=== PATIENT | male | born 1950 | race Caucasian/White ===

== ENCOUNTER 2023-06-12 10:00 | Outpatient (RCR) | payer MEDICARE, OTHER, SELFPAY ==
--- NOTE | 2023-04-25 18:31 | HP.PTEVAL ---
Patient's Visit Information SADIA TODD Jr. is a 72 year old M referred to Physical Therapy by SHEYLA LESTER with a diagnosis of imbalance/gait difficulty. Date of Evaluation: 04/25/23 Physical Therapist: OVIDIO DelgadoT, OCS, CSCS - Visit Plan Frequency: 2x /Week Duration: 4-6 Weeks Plan: 2x/week for 4=6 weeks for. 1/ PF strength and forward weight shift functionally. 2. teach gym based LE adn core and overall strength program to capo goldstein I. - Subjective Balance sucks. I can feel it getting worse over the last year. Brain and memory is poor. Wants to workout. [place] go to [place]. Had a helper and stayed level and did not get worse. Upper thighs are with strength, hard time walking as legs give out and get tired. Had had few falls LOB is the cause. It has been a while. Doesn't remember well the last time he fell. Then says last fall was going into house in last three weeks. No injury. Has neuroapthy from DM, but doesnt have that. Might get a little dizzy upon standing for short time. patient has hard time remembering symptoms. No pain. No cane or walker, sometimes uses walking stick if wifes around. Lives with , one story house in [facility], has disease and getting near lungs giving out. Came to [place] to . Live in two story [place] in [place] but he avoids steps. Some steps with railing to enter house and that is going OK. No regular exercise right now, been here three weeks. - Objective Walks without weight shift with short steps adn unable to push off. Forward weight shift is difficult, Hits gorund hard but I in gait. Transfers are I without UE. Steps require rail for safety adn tend to pull his way up step avoiding FW weight shift. Comes down with poor eccentric control and landing on heel and flat foot rather than forefoot. 754 B PF strength to seated testing. LE AROM WFL, tightness present in gastroc and hamstring. Sensation diminished to gross light touch in B LE feet. Hips weak in stabilizers at 3 and flexion 3+ and ext adn abd 3. knees 4- B quads and hammys. Strefngth in ankles 3+ inv ev B, 4 DF, 3 PF and unable to heel raise B or unilaterally. reflexes 1/3 patella and 0/3 achilles. no tremors. Coordination to reciprocal toe tap is fair and heel tap is poor. heel to peter test is Ok. - Balance/Special Test Scores Functional Gait Assessment Score: 23 % Disability: 23.3400 Lower Extremity Functional Score: 19 - Goals Goal 1:: 85 strength B pf and I in HEP to strengthen Goal 2:: Patient be I in appropriate gym based silver triston LE and core adn balance ex program Goal Time Frame: 4-6 Weeks Goal 3:: pt feel 50% better overall and I in management Goal Time Frame: 4-6 Weeks Goal 4:: FGa Goal Time Frame: 4-6 Weeks Goal 5:: 39 LEFS Goal Time Frame: 4-6 Weeks - Rehabilitation Potential Physical Therapy Diagnosis: imbalance due to neuroapthya dn PF weakness. Rehabilitation Potential: Questionable - Anticipated Interventions Patient/Client Instruction: Educate patient on: Condition, Plan of Care For the Purpose of:: To improve muscle performance and motor function, To increase tolerance to activity/condition/position, To improve gait and locomotor functions Therapeutic Exercise to Include: Strength training, Flexibilty training For the Purpose of:: To increase ROM, To improve nutrient delivery to tissue, To improve muscle performance and motor function, To increase tolerance to activity/condition/position, To improve gait and locomotor functions, To improve safety Thank you for the opportunity to evaluate your patient. For Medicare and Medicare HMO plans, please review the plan of care and approve it. It will need to be FAXED BACK to us at [phone] for Medicare purposes. For Medicare only, by signing this I certify the plan of care. Please let me know if there are questions or concerns regarding this plan of care. Physician Signature: Date:
--- NOTE | 2023-08-12 07:22 | HP.PT.NRP ---
Patient Information Patient Information: SADIA TODD Jr. was seen in my office for initial evaluation on 04/25/23. The following Plan of Care was established for this patient: POC Established Initial Frequency: 2x /Week Initial Duration: 4-6 Weeks Anticipated Interventions Patient/Client Instruction: Educate patient on: Condition and Plan of Care For the Purpose of:: To improve muscle performance and motor function, To increase tolerance to activity/condition/position and To improve gait and locomotor functions Therapeutic Exercise to Include: Strength training and Flexibilty training For the Purpose of:: To increase ROM, To improve nutrient delivery to tissue, To improve muscle performance and motor function, To increase tolerance to activity/condition/position, To improve gait and locomotor functions and To improve safety Last Seen Last Seen: This patient was last seen in our office 06/12/23. Pertinent comments regarding their Physical therapy will appear below: Pt seen 8 visits of POC but did not schedule or attend any further visits. at this point, it has been almost two months and I will discontinue due to nonattendance. At this point I will be discontinuing this patient from physical therapy. I would be happy to see this patient again in the future if found appropriate by the physician. Thank you! Shaheed Turner, DPT, OCS, CSCS Balance/Gait/Functional tests Balance/Special Test Scores Functional Gait Assessment Score: 23 % Disability: 23.3400 Lower Extremity Functional Score: 19
== END 2023-06-12 19:00 | disposition home or self-care (01) ==
LOC: PT 10:00
PROVIDERS: PCP Family Medicine
DX: G60.9 Hereditary and idiopathic neuropathy, unspecified (principal); R26.81 Unsteadiness on feet
CPT/HCPCS: 97110; 97112; 97162

== ENCOUNTER → 2024-08-20 | Outpatient (CLI) | payer MEDICARE, OTHER, SELFPAY ==
[2024-08-24 17:07] LABS: Acetylcholine Receptor Binding < 0.03 nmol/L (0.00-0.24)
== END | disposition home or self-care (01) ==
PROVIDERS: PCP Family Medicine; Referring Provider Ophthalmology; Visit Provider Ophthalmology
DX: H50.00 Unspecified esotropia (principal); H02.402 Unspecified ptosis of left eyelid; H04.123 Dry eye syndrome of bilateral lacrimal glands; H26.491 Other secondary cataract, right eye
CPT/HCPCS: 36415; 84238